=== PATIENT | female | born 1950 | race Caucasian/White ===

== ENCOUNTER 2019-03-20 00:07 | Inpatient (IN) | payer MEDICARE ==
[~2019-03-20] VITALS: Ht 167.6 cm; Wt 59.0 kg
[2019-03-20] VITALS (9 sets, daily range): BP systolic 83–104; BP diastolic 51–61
--- NOTE | 2019-03-20 00:17 | NUR ---
ARRIVAL PATIENT PRESENTS WITH COMPLAINTS OF EPIGASTRIC PAIN THAT RADIATES TO RUQ AND TO BACK SINCE 8PM LAST NIGHT. PATIENT ALSO REPORTS NAUSEA. STATES THAT SHE HAD A SIMILAR EXPERIENCE ABOUT 6 WEEKS AGO BUT THAT THIS EPISODE IS WORSE. RATES PAIN 610 AT THIS TIME. VSS. VARGAS MD NOTIFIED.
[2019-03-20] MEDS ORDERED: TORADOL IV STA (00:48)
--- NOTE | 2019-03-20 00:48 | ER.PDOC ---
General Chief Complaint: Requesting Medical Care Stated Complaint: UPPER ABD PAIN Time seen by MD: 00:25 Source: patient, family (SPOUSE) Exam Limitations: no limitations History of Present Illness Initial Comments 69 YO FEMALE PRESENTS WITH EPIGASTRIC PAIN 9/10 X 4 HRS. THE PAIN IS CONSTANT, RADIATES TO HER BACK. ASSCOCIATED NAUSEA AND VOMITING X 3. NO FEVER OR CHILLS. NO CHEST PAIN OR SHORTNESS OF BREATH. SHE HAD EATEN 3 HRS PRIOR TO THE ONSET OF THE PAIN. PATIENT HAS HAD BOWEL OBSTRUCTION IN THE PAST. SHE TOOK TYLENOL FOR THE PAIN. Timing/Duration: 1-3 hours Severity/Quality: severe, throbbing Radiation: epigastric Associated Symptoms: back pain, nausea/vomiting Exacerbated by: nothing Relieved By: nothing Allergies: Coded Allergies: morphine (Verified Allergy, Unknown, 03/20/19) Home Meds Unable to Obtain Active Prescriptions or Reported Meds Vital Signs First Vital Signs Date Time Temp Pulse Resp B/P (MAP) Pulse Ox O2 Delivery O2 Flow Rate FiO2 03/20/19 00:17 97.8 82 16 103/57 (72) 94 Room Air Last Vital Signs Date Time Temp Pulse Resp B/P (MAP) Pulse Ox O2 Delivery O2 Flow Rate FiO2 03/20/19 04:00 68 16 95/57 (70) 94 Room Air 03/20/19 00:17 97.8 Past Medical History Medical History: hypertension, other (CROHN'S DISEASE) Surgical History: colectomy LMP (females 10-50): postmenopause Family History Significant Family History: no pertinent family hx Social History Smoking: cigarettes Alcohol Use: none Drug Use: none Reviewed Nursing Reviewed: Vital Signs, Abn. Noted, Nursing Assessment Constitutional: denies chills, denies fever EENTM: see HPI Respiratory: denies cough, denies shortness of breath Cardiovascular: denies chest pain Gastrointestinal: abdominal pain, nausea, vomiting Genitourinary: see HPI Skin: see HPI Psychiatric/Neurological: see HPI Hematologic/Lymphatic: see HPI Physical Exam General Appearance: Anxious HEENT: PERRL/EOMI, Normal ENT Inspection Neck: Supple Respiratory: chest non-tender, lungs clear, normal breath sounds, no respiratory distress Cardiovascular: Normal Peripheral Pulses, Regular Rate, Rhythm, No Edema, No JV D Gastrointestinal: No Organomegaly, No Pulsatile Mass, Hyperactive bowel sounds, Soft, Tenderness (RIGHT LOWER, RIGHT UPPER, EPIGASTRIC AND LEFT UPPER QUADRANT TENDERNESS- MODERATE), Other (falk's positive) Back: Normal Inspection, No CVA Tenderness, No Vertebral Tenderness Extremities: Normal Range of Motion, Non-Tender, Normal Inspection Neurologic/Psychiatric: Alert, Normal Mood/Affect, Oriented x 3 Skin: Normal Color, Warm/Dry Results/Orders Results/Orders Orders - QUCO KAYE MD Cbc With Auto Diff (03/20/19 00:48) Comprehensive Metabolic Panel (03/20/19 00:48) Amylase (03/20/19 00:48) Lipase (03/20/19 00:48) Ct Abd/Pel With Iv Contrast (03/20/19 00:48) Urinalysis (03/20/19 00:48) Saline Lock (03/20/19 00:48) Ekg-Routine (03/20/19 00:48) Ketorolac Tromethamine (Toradol) (03/20/19 00:48) Ondansetron Hcl/Pf (Zofran 4 Mg/2 Ml Via (03/20/19 00:52) 0.9 % Sodium Chloride (Ns 1000ml) (03/20/19 00:52) Us Abdomen Limited (03/20/19 02:44) Piperacillin Sodium/Tazobactam (Zosyn 3. (03/20/19 04:24) 0.9 % Sodium Chloride (Ns 100ml) (03/20/19 04:26) Vital Signs Date Time Temp Pulse Resp B/P (MAP) Pulse Ox O2 Delivery O2 Flow Rate FiO2 03/20/19 04:00 68 16 95/57 (70) 94 Room Air 03/20/19 03:00 81 16 93/56 (68) 94 Room Air 03/20/19 02:00 79 16 91/56 (68) 94 Room Air 03/20/19 01:00 86 16 98/61 (73) 96 Room Air 03/20/19 00:17 97.8 82 16 03/20/19 00:17 97.8 82 16 94 Room Air 03/20/19 00:17 97.8 82 16 103/57 (72) 94 Room Air Administered Medications Medications (Trade) Dose Ordered Sig/Jona Route PRN Reason Start Time Stop Time Status Last Admin Dose Admin Ketorolac Tromethamine (Toradol) 15 mg STAT STAT IV 03/20/19 00:48 03/20/19 05:24 DC 03/20/19 01:03 15 MG Ondansetron HCl (Zofran 4 Mg/2 ml Vial) 4 mg STAT STAT IV 03/20/19 00:52 03/20/19 05:24 DC 03/20/19 01:03 4 MG Sodium Chloride 1,000 ml @ 0 mls/hr Q0M STAT IV 03/20/19 00:52 03/20/19 05:23 DC 03/20/19 01:03 1,000 MLS/HR Laboratory Tests Test 03/20/19 00:19 03/20/19 01:00 03/20/19 01:10 Urine Collection Type VOID Urine Color YELLOW (YELLOW) Urine Appearance CLEAR (CLEAR) Urine Bilirubin NEGATIVE MG/DL (NEGATIVE) Urine Ketones NEGATIVE (NEGATIVE) Urine Specific [place] 1.020 (1.005-1.035) Urine pH 5 (5.0-6.0) Urine Protein 15 mg/dL (NEGATIVE) H Urine Urobilinogen NORMAL (NEGATIVE) Urine Nitrate NEGATIVE (NEGATIVE) Urine Leukocyte Esterase 25 /uL TRACE (NEGATIVE) Urine Blood NEGATIVE (NEGATIVE) Urine RBC 0-2 RBC/HPF (NONE SEEN) Urine WBC 2-5 WBC/HPF (0-2) Urine Squamous Epithelial Cells MANY #/HPF (FEW) Urine Bacteria NONE SEEN (NONE SEEN) Urine Glucose NORMAL (NEGATIVE) White Blood Count 14.2 10^3/uL (4.5-11.0) H Red Blood Count 4.56 10^6/uL (4.00-5.20) Hemoglobin 14.4 g/dL (12.0-15.0) Hematocrit 41.9 % (36.0-46.0) Mean Corpuscular Volume 91.9 fL (78-100) Mean Corpuscular Hemoglobin 31.6 pg (26-34) Mean Corpuscular Hemoglobin Concent 34.4 g/dL (33-37) Red Cell Distribution Width 12.8 % (11.5-14.5) Platelet Count 316 10^3/uL (150-400) Mean Platelet Volume 9.7 fL (7.8-11.0) Neutrophils (%) (Auto) 76.1 % (41.0-85.0) Lymphocytes (%) (Auto) 16.4 % (24.0-44.0) L Monocytes (%) (Auto) 6.4 % (5.0-12.0) Neutrophils # (Auto) 10.8 10^3/uL (1.8-7.7) H Lymphocytes # (Auto) 2.3 10^3/uL (1.0-4.8) Monocytes # (Auto) 0.9 10^3/uL (0.3-0.8) H Absolute Immature Granulocyte (auto 0.04 10^3 u/L (0-2) Immature Granulocytes % 0.30 % (0.00-0.50) Eosinophils % 0.4 % (0.0-5.0) Basophils % 0.4 % (0.0-0.2) H Basophils # 0.1 10^3/uL (0.0-0.1) Eosinophil Count 0.1 10^3/uL (0.0-0.2) Sodium Level 139 mmol/L (132-145) Potassium Level 3.2 mmol/L (3.6-5.2) L Chloride Level 99.0 mmol/L (96-109) Carbon Dioxide Level 29.6 mmol/L (20.0-32) Anion Gap 13.6 Blood Urea Nitrogen 19 mg/dL (7-18) H Creatinine 1.24 mg/dL (0.59-1.40) Estimated GFR () 51.6 (>/=60) BUN/Creatinine Ratio 15.0 Glucose Level 131 mg/dL (70-110) H Calcium Level 9.2 mg/dL (8.4-10.5) Total Bilirubin 1.2 mg/dL (0.2-1.0) H Aspartate Amino Transferase (AST) 126 U/L (0-35) H Alanine Aminotransferase (ALT) 75 U/L (12-78) Alkaline Phosphatase 159 U/L (50-136) H Total Protein 7.6 g/dL (6.4-8.2) Albumin 3.7 g/dL (3.4-5.0) Globulin 3.9 Amylase Level 75 U/L (25-115) Lipase 534 U/L (114-286) H Differential Total Cells Counted 100 #CELLS Segmented Neutrophils 76 % (31-76) Lymphocytes 10 % (25-36) L Monocytes 13 % (3-9) H Absolute Eosinophils (Manual) 1 % (1-4) Atypical Lymphocytes % Platelet Estimate ADEQUATE Platelet Morphology NORMAL Blood Morphology Comment NORMAL MORPHOLOGY Progress Progress PATIENT STATES IMPROVEMENT IN PAIN AND NAUSEA. LABS SHOW ELEVATED WBC, ALK PHOSPHATE, BILIRUBIN, LIVER ENZYMES AND LIPASE. EKG IS UNREMARKABLE. CT SCAN AND GALL BLADDER SONO SHOW STONES/SLUDGE IN GALLBLADDER AND WALL THICKNESS. THIS IS CONSISTENT WITH ACUTE CHOLECYSTITIS. WILL CONSULT WITH SURGEON. THE PATIENT IS STABLE. EKG/XRAY/CT/US EKG: NSR (SINUS ARRYTHMIA WITH 1ST DEGREE AV BLOCK) CT Comments: . Dense gallbladder nodule in the nondependent portion of the gallbladder, Ultrasound: gall bladder stones, thick gall bladder wall Utrasound Comments: Gallbladder contains stone and sludge. The gallbladder wall is thickened. Consult/PCP Time Consult/PCP Called: 04:20 Consult/PCP: DR. LITTLEJOHN Reason/Comments: ADMIT TO HOSPITALIST, I WILL CONSULT. START ZOSYN #2 Time Consult/PCP Called: 04:25 Consult/PCP: DR. CARLSON Reason/Comments: ACCEPTED ADMIT Course Vitals & review Data Vital Sign - Last 24 Hours 03/20/19 03/20/19 03/20/19 03/20/19 00:17 00:17 00:17 01:00 Temp 97.8 97.8 97.8 Pulse 82 82 82 86 Resp 16 16 16 16 B/P (MAP) 103/57 (72) 98/61 (73) Pulse Ox 94 94 96 O2 Delivery Room Air Room Air Room Air 03/20/19 03/20/19 03/20/19 02:00 03:00 04:00 Pulse 79 81 68 Resp 16 16 16 B/P (MAP) 91/56 (68) 93/56 (68) 95/57 (70) Pulse Ox 94 94 94 O2 Delivery Room Air Room Air Room Air Laboratory Tests Test 03/20/19 00:19 03/20/19 01:00 03/20/19 01:10 Urine Collection Type VOID Urine Color YELLOW Urine Appearance CLEAR Urine Bilirubin NEGATIVE MG/DL Urine Ketones NEGATIVE Urine Specific [place] 1.020 Urine pH 5 Urine Protein 15 mg/dL Urine Urobilinogen NORMAL Urine Nitrate NEGATIVE Urine Leukocyte Esterase 25 /uL TRACE Urine Blood NEGATIVE Urine RBC 0-2 RBC/HPF Urine WBC 2-5 WBC/HPF Urine Squamous Epithelial Cells MANY #/HPF Urine Bacteria NONE SEEN Urine Glucose NORMAL White Blood Count 14.2 10^3/uL Red Blood Count 4.56 10^6/uL Hemoglobin 14.4 g/dL Hematocrit 41.9 % Mean Corpuscular Volume 91.9 fL Mean Corpuscular Hemoglobin 31.6 pg Mean Corpuscular Hemoglobin Concent 34.4 g/dL Red Cell Distribution Width 12.8 % Platelet Count 316 10^3/uL Mean Platelet Volume 9.7 fL Neutrophils (%) (Auto) 76.1 % Lymphocytes (%) (Auto) 16.4 % Monocytes (%) (Auto) 6.4 % Neutrophils # (Auto) 10.8 10^3/uL Lymphocytes # (Auto) 2.3 10^3/uL Monocytes # (Auto) 0.9 10^3/uL Absolute Immature Granulocyte (auto 0.04 10^3 u/L Immature Granulocytes % 0.30 % Eosinophils % 0.4 % Basophils % 0.4 % Basophils # 0.1 10^3/uL Eosinophil Count 0.1 10^3/uL Sodium Level 139 mmol/L Potassium Level 3.2 mmol/L Chloride Level 99.0 mmol/L Carbon Dioxide Level 29.6 mmol/L Anion Gap 13.6 Blood Urea Nitrogen 19 mg/dL Creatinine 1.24 mg/dL Estimated GFR () 51.6 BUN/Creatinine Ratio 15.0 Glucose Level 131 mg/dL Calcium Level 9.2 mg/dL Total Bilirubin 1.2 mg/dL Aspartate Amino Transf (AST/SGOT) 126 U/L Alanine Aminotransferase (ALT/SGPT) 75 U/L Alkaline Phosphatase 159 U/L Total Protein 7.6 g/dL Albumin 3.7 g/dL Globulin 3.9 Amylase Level 75 U/L Lipase 534 U/L Differential Total Cells Counted 100 #CELLS Segmented Neutrophils 76 % Lymphocytes 10 % Monocytes 13 % Absolute Eosinophils (Manual) 1 % Atypical Lymphocytes % Platelet Estimate ADEQUATE Platelet Morphology NORMAL Blood Morphology Comment NORMAL MORPHOLOGY Current Medications Medications (Trade) Dose Ordered Sig/Jona PRN Reason Start Time Stop Time Status Last Admin Piperacillin Sod/ Tazobactam Sod 3.375 gm/Sodium Chloride 100 ml @ 100 mls/hr Q6 STAT 03/20/19 04:24 03/20/19 05:23 UNV Vital Sign - Last 24 Hours 03/20/19 03/20/19 03/20/19 00:17 00:17 00:17 Temp 97.8 97.8 97.8 Pulse 82 82 82 Resp 16 16 16 B/P (MAP) 103/57 (72) Pulse Ox 94 94 O2 Delivery Room Air Room Air Laboratory Tests Test 03/20/19 00:19 03/20/19 01:00 03/20/19 01:10 Urine Collection Type VOID Urine Color YELLOW Urine Appearance CLEAR Urine Bilirubin NEGATIVE MG/DL Urine Ketones NEGATIVE Urine Specific [place] 1.020 Urine pH 5 Urine Protein 15 mg/dL Urine Urobilinogen NORMAL Urine Nitrate NEGATIVE Urine Leukocyte Esterase 25 /uL TRACE Urine Blood NEGATIVE Urine RBC 0-2 RBC/HPF Urine WBC 2-5 WBC/HPF Urine Squamous Epithelial Cells MANY #/HPF Urine Bacteria NONE SEEN Urine Glucose NORMAL White Blood Count 14.2 10^3/uL Red Blood Count 4.56 10^6/uL Hemoglobin 14.4 g/dL Hematocrit 41.9 % Mean Corpuscular Volume 91.9 fL Mean Corpuscular Hemoglobin 31.6 pg Mean Corpuscular Hemoglobin Concent 34.4 g/dL Red Cell Distribution Width 12.8 % Platelet Count 316 10^3/uL Mean Platelet Volume 9.7 fL Neutrophils (%) (Auto) 76.1 % Lymphocytes (%) (Auto) 16.4 % Monocytes (%) (Auto) 6.4 % Neutrophils # (Auto) 10.8 10^3/uL Lymphocytes # (Auto) 2.3 10^3/uL Monocytes # (Auto) 0.9 10^3/uL Absolute Immature Granulocyte (auto 0.04 10^3 u/L Immature Granulocytes % 0.30 % Eosinophils % 0.4 % Basophils % 0.4 % Basophils # 0.1 10^3/uL Eosinophil Count 0.1 10^3/uL Sodium Level 139 mmol/L Potassium Level 3.2 mmol/L Chloride Level 99.0 mmol/L Carbon Dioxide Level 29.6 mmol/L Anion Gap 13.6 Blood Urea Nitrogen 19 mg/dL Creatinine 1.24 mg/dL Estimated GFR () 51.6 BUN/Creatinine Ratio 15.0 Glucose Level 131 mg/dL Calcium Level 9.2 mg/dL Total Bilirubin 1.2 mg/dL Aspartate Amino Transf (AST/SGOT) 126 U/L Alanine Aminotransferase (ALT/SGPT) 75 U/L Alkaline Phosphatase 159 U/L Total Protein 7.6 g/dL Albumin 3.7 g/dL Globulin 3.9 Amylase Level 75 U/L Lipase 534 U/L Differential Total Cells Counted 100 #CELLS Segmented Neutrophils 76 % Lymphocytes 10 % Monocytes 13 % Absolute Eosinophils (Manual) 1 % Atypical Lymphocytes % Platelet Estimate ADEQUATE Platelet Morphology NORMAL Blood Morphology Comment NORMAL MORPHOLOGY Current Medications Medications (Trade) Dose Ordered Sig/Jona PRN Reason Start Time Stop Time Status Last Admin Ketorolac Tromethamine (Toradol) 15 mg STAT STAT 03/20/19 00:48 03/20/19 00:49 UNV 03/20/19 01:03 Ondansetron HCl (Zofran 4 Mg/2 ml Vial) 4 mg STAT STAT 03/20/19 00:52 03/20/19 00:53 UNV 03/20/19 01:03 Piperacillin Sod/ Tazobactam Sod 3.375 gm/Sodium Chloride 100 ml @ 100 mls/hr Q6 STAT 03/20/19 04:24 03/20/19 05:23 UNV Sodium Chloride 1,000 ml @ 0 mls/hr Q0M STAT 03/20/19 00:52 03/20/19 00:53 UNV 03/20/19 01:03 Departure Time of Disposition: 04:26 Disposition: 09 ADMITTED INPATIENT Impression: Primary Impression: Acute cholecystitis due to biliary calculus Additional Impression: Acute pancreatitis Condition: Stable Referrals: ANGELICA RECINOS MD (PCP) PRIMARY CARE PROVIDER Scripts Unable to Obtain Active Prescriptions or Reported Meds Duration or Time Spent with Pa: 60 min Problem Qualifiers QUOC KAYE MD Mar 20, 2019 00:48
[2019-03-20] MEDS ORDERED: ZOFRAN 4 MG/2 ML VIAL IV STA (00:52)
[2019-03-20] MEDS ORDERED: NS 1000ML 1,000 ML STA (00:52)
[2019-03-20 01:04] LABS: BASOPHIL # 0.1 10^3/uL (0.0-0.1); BASOPHIL % 0.4 % (0.0-0.2); EOSINOPHIL # 0.1 10^3/uL (0.0-0.2); EOSINOPHIL % 0.4 % (0.0-5.0); LYMPHOCYTES # 2.3 10^3/uL (1.0-4.8); LYMPHOCYTES % 16.4 % (24.0-44.0); MEAN CORP HGB 31.6 pg (26-34); MONOCYTES # 0.9 10^3/uL (0.3-0.8); MONOCYTES % 6.4 % (5.0-12.0); NEUTROPHIL # 10.8 10^3/uL (1.8-7.7); NEUTROPHILS % 76.1 % (41.0-85.0); RED CELL DISTRIBUTION WIDTH 12.8 % (11.5-14.5)
--- NOTE | 2019-03-20 01:12 | PCM.EKG ---
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
[2019-03-20 01:19] LABS: APPEARANCE,URINE CLEAR (CLEAR); BILIRUBIN,URINE NEGATIVE (NEGATIVE); UA COLOR YELLOW (YELLOW); UROBILINOGEN,URINE NORMAL (NEGATIVE)
[2019-03-20 01:20] LABS: CALCIUM 9.2 mg/dL (8.4-10.5); CARBON DIOXIDE 29.6 mmol/L (20.0-32)
--- NOTE | 2019-03-20 01:30 | NUR ---
RADIOLOGY PATIENT IS BEING TRANSPORTED TO RADIOLOGY VIA WHEELCHAIR. NO SIGNS OF DISTRESS NOTED.
--- NOTE | 2019-03-20 01:42 | NUR ---
RADIOLOGY PATIENT BACK FROM RADIOLOGY. NO SIGNS OF DISTRESS NOTED.
--- NOTE | 2019-03-20 01:59 | DIREP ---
PROCEDURE:CT ABDOMEN/PELVIS W/ CONTRAST COMPARISON:None. INDICATIONS:ABDOMINAL PAIN TECHNIQUE:Axial images were created through the abdomen and pelvis with non-ionic intravenous contrast material. No oral contrast was administered. Sagittal and coronal reconstructions were performed from source images. FINDINGS: LUNG BASES:Normal. No visible pulmonary or pleural disease. LIVER:Normal. No significant liver lesions are identified. BILIARY:1 cm dense focus in the anterior wall gallbladder. Punctate gallbladder calcification. PANCREAS:Normal. No lesion, fluid collection, ductal dilatation, or atrophy. SPLEEN:Normal. No enlargement or focal lesion. ADRENALS:Normal. No mass or enlargement. URINARY TRACT:Normal. No focal lesions or hydronephrosis. AORTA/VASCULAR: There is atherosclerotic aortic calcium. RETROPERITONEUM:Normal. No mass or adenopathy. BOWEL/MESENTERY:Normal. There is no intestinal obstruction, free fluid, free air or mesenteric inflammatory changes. ABDOMINAL WALL:Normal. No mass or hernia. PELVIC ORGANS:Calcified uterine fibroids BONES:Normal for age. No bony lesion or acute fracture. OTHER:Negative. CONCLUSION: 1. Dense gallbladder nodule in the nondependent portion of the gallbladder, adhering to the gallbladder wall. Findings suggest a polyp. There is also a tiny gallstone. 2. Calcified uterine fibroid Dictated by: Evert Alvarez Jr. on 03/20/2019 at 01:51 AM
[2019-03-20 03:14] LABS: EOSINOPHIL 1 % (1-4); LYMPHOCYTE 10 % (25-36); MONOCYTE 13 % (3-9); SEGMENTED NEUTROPHILS 76 % (31-76)
--- NOTE | 2019-03-20 03:19 | DIREP ---
PROCEDURE:US ABDOMEN LIMITED (SINGLE ORGAN - QUAD) COMPARISON:[facility], CT, CT ABD/PELVIS W/ CONTRAST, 03/20/2019, 01:38 AM. INDICATIONS:RUQ PAIN TECHNIQUE:High resolution sonographic examination was performed of the abdomen. FINDINGS: PANCREAS:Partially obscured by overlying bowel gas LIVER:Normal size and echogenicity. No significant masses. Normal, hepatopetal, flow in the portal vein. BILIARY:Contains stones and sludge. The wall is thickened to 7 mm. There are echogenic foci within the wall with comet tail artifact suggesting adenomyosis. RIGHT KIDNEY:Negative. OTHER:Negative. CONCLUSION: 1. Gallbladder contains stone and sludge. The gallbladder wall is thickened. There are comet tail artifacts in the gallbladder wall in keeping with adenomyosis. Dictated by: Evert Alvarez Jr. on 03/20/2019 at 03:14 AM
[2019-03-20] MEDS ORDERED: ZOSYN 3.375 GM 3.375 GM in NS 100ML 100 ML IV STA (04:24)
[2019-03-20] MEDS ORDERED: NS 100ML 100 ML IV ONE (04:26)
--- NOTE | 2019-03-20 04:43 | NUR ---
ZOSYN 3.375MG STARTED AT 0438 BY Leesa CRANERN
--- NOTE | 2019-03-20 05:13 | NUR ---
REPORT REPORT CALLED TO NORRIS RENDON ON MED/SURG. ALL QUESTIONS ANSWERED. PATIENT IS BEING TRANSFERRED TO MED/SURG VIA WHEELCHAIR BY NORRIS FLORES.
--- NOTE | 2019-03-20 05:15 | NUR ---
RECEIVED PT TO UNIT VIA W/C ACCOMPANIED BY SOFT WORK WRAPPER EXAMINER. PT DENIES PAIN AT THIS TIME, SHE TRANSFERS SELF TO BED WITHOUT DIFFICULTY. ORIENT TO ROOM, CALL LIGHT IN REACH
[2019-03-20] MEDS: NS 1000ML/KCL 20MEQ 1,000 ML IV SCH ×2 (05:40→16:29)
[2019-03-20 08:19] LABS: BASOPHIL # 0.1 10^3/uL (0.0-0.1); BASOPHIL % 0.5 % (0.0-0.2); EOSINOPHIL # 0.1 10^3/uL (0.0-0.2); EOSINOPHIL % 0.8 % (0.0-5.0); LYMPHOCYTES # 3.2 10^3/uL (1.0-4.8); LYMPHOCYTES % 29.9 % (24.0-44.0); MONOCYTES % 9.4 % (5.0-12.0); NEUTROPHIL # 6.3 10^3/uL (1.8-7.7); NEUTROPHILS % 59.2 % (41.0-85.0); RED CELL DISTRIBUTION WIDTH 12.7 % (11.5-14.5)
[2019-03-20] MEDS ORDERED: APRESOLINE IV PRN (08:30)
[2019-03-20] MEDS ORDERED: ZOFRAN 4 MG/2 ML VIAL IV PRN (08:30)
--- NOTE | 2019-03-20 08:30 | PCM.HP ---
History of Present Illness Reason for Visit: Abdominal Pain, N/D History of Present Illness Patient is a 69 F PMH of Crohn's Disease with hx of Small Bowel Resection and HTN who presents with abdominal pain, nausea, diarrhea x 1 day. Symptoms started at 8PM. She had similar symptoms 6 weeks ago but not as severe. The pain was so intense that patient came to ER. She was found to have acute on Chronic Cholecystitis with Gallstone Pancreatitis. Surgery was consulted and patient admitted to hospital. She was started on IV abx, made NPO, and started on IVF. Pain is controlled currently. I discussed case with Surgery. I reviewed patient's labs and reviewed medical/surgical hx. I discussed plan of care with patient and she verbalized understanding/agreement. EKG negative for acute ischemic changes. Mild prolongation of QT, possibly 2/2 hypokalemia. Past Medical History Cardiac: HTN GI: Inflam Bowel Disease (Crohn's (on Humira outpatient)) Past Surgical History: Cataract Removal, Other (L shoulder, Small Bowel Resection (2/2 SBO, 9 inches removed)) Past Social History Smoke: 1 pack per day Alcohol: none Drugs: None Lives: with Family Travel Hx EBOLA RISK:Travel to/contact w: No Is pt experiencing any Ebola s: No Review of Systems Constitutional: No: Fever, Chills Eyes: No: Conjunctivae inflammation, Eyelid inflammation ENT: No: Nose discharge, Nose congestion Respiratory: No: Cough, Shortness of breath, SOB with excertion, Wheezing Cardiovascular: No: Chest Pain, Palpitations, Paroxysmal Noc. Dyspnea Gastrointestinal: Nausea, Vomiting, Abdominal Pain, Diarrhea Genitourinary: No Incontinence, No Retention Musculoskeletal: No: neck pain, back pain Skin: No: Rash, Lesions, Jaundice, Bruising Neurological: No: Weakness, Numbness, Incoordination, Change in speech, Confusion, Seizures Allergies: Coded Allergies: morphine (Verified Allergy, Unknown, 03/20/19) Unable to Obtain Active Prescriptions or Reported Meds VTE VTE Risk Total Score: 2 VTE Risk Score VTE Risk: Score 0-1 = Low Risk (Aggressive mobilization; early ambulation; no VTE prophylaxis required) Score 2: Moderate Risk (Intermittent/Pneumatic Compression Device OR Lovenox/Heparin/Coumadin) Score 3-4: High Risk (Intermittent/Pneumatic Compression Device AND Lovenox/Heparin/Coumadin) Score > or =5: Highest Risk (Intermittent/Pneumatic Compression Device AND Lovenox/Heparin/Coumadin) VTE VTE Present on Admission: No Currently receiving anticoagul: No VTE Risk Total Score: 2 Exam Vital Signs Vital Signs Date Time Temp Pulse Resp B/P (MAP) Pulse Ox O2 Delivery O2 Flow Rate FiO2 03/20/19 05:50 97.8 72 17 95/61 (72) 93 Room Air General Appearance: Alert, Oriented X3, Cooperative, No acute distress HEENT: Atraumatic, PERRLA, EOMI, Mucous membr. moist/pink Respiratory: Clear to auscultation, Normal air movement Cardiovascular: Regular rate, Normal S1, Normal S2, No murmurs Abdominal: Normal bowel sounds, Soft, No tenderness Extremities: No edema, Normal pulses, No tenderness/swelling Skin: No rash, No breakdown, No lesions Neuro: Normal speech, Strength at 5/5 X4 ext, Normal tone, Sensation intact, Cranial nerves 3-12 NL Psych/Mental Status: Mental status NL, Mood NL Assessment/Plan Assessment/Plan Assessment/Plan Patient is a 69 F PMH of Crohn's Disease with hx of Small Bowel Resection and HTN who presents with abdominal pain, nausea, diarrhea x 1 day. Plan 1. Acute on Chronic Cholecystitis/Gallstone Pancreatitis: repeat labs this AM. Imaging reviewed. Surgery consulted from ER. NPO currently. Cont IVF. Cont pain control, PPI IV daily. Await further recs per surgery. Cont IV abx. 2. HTN: BP low normal range currently. Hold home meds. Hydralazine PRN. 3. Crohn's Disease: Patient on Humira outpatient. Hx of SBO with Small Bowel Resection. 4. PPx: PPI, Lovenox 5. Hypokalemia: replace in IVF LEE CARLSON MD Mar 20, 2019 08:30
[2019-03-20 08:33] LABS: CALCIUM 8.1 mg/dL (8.4-10.5); CARBON DIOXIDE 26.8 mmol/L (20.0-32)
[2019-03-20] MEDS ORDERED: HYDR25TA9 PO (08:34)
[2019-03-20] MEDS ORDERED: METO25TA4 PO (08:34)
[2019-03-20] MEDS ORDERED: AMLO5TAB10 PO (08:34)
[2019-03-20] MEDS: PROTONIX IV IV SCH (08:34)
[2019-03-20] MEDS ORDERED: SPIR25TA PO (08:34)
[2019-03-20] MEDS ORDERED: DIPH1TAB PO (08:34)
[2019-03-20] MEDS: LOVENOX SQ SCH (08:35)
[2019-03-20] MEDS ORDERED: TORADOL ONE (08:57)
[2019-03-20] MEDS ORDERED: PROTONIX PO SCH (09:00)
[2019-03-20] MEDS: TORADOL IV PRN ×2 (09:31→17:18)
--- NOTE | 2019-03-20 11:45 | NUR ---
DISCHARGE PLAN CM AT BEDSIDE TO VISIT WITH PATIENT REGARDING D/C PLAN AND GOAL. PATIENT LIVES AT HOME WITH HER SPOUSE. SHE IS INDEPENDENT OF ADLS. SHE IS FINANCIALLY ABLE TO PAY FOR HER MEDICATIONS. SHE DENIES THE USE OF DME OR OXYGEN IN THE HOME. HER PCP IS DR RECIONS AND KARENA LEWIS HER LAST F/U THERE WAS 2 MONTHS AGO. CM OFFERED TO SCHEDULE A F/U AND PT REFUSED STATING SHE IS GOING TO F/U WITH DR JO HER BRACER IN [place]. CM EDUCATED PT ON OP SERVICES AND HH. PATIENT STATES SHE IS INDEPENDENT AND SIGNED REFUSAL AT THIS TIME. CM ALSO ASSISTED PT TO FILL OUT RELEASE OF MEDICAL RECORD FOR HIM. DISCHARGE GOAL IS FOR PT TO D/C HOME WITH SPOUSE AND CONTINUE ROUTINE CARE THERE. NO FURTHER NEEDS NOTED AT THIS TIME.
--- NOTE | 2019-03-20 11:45 | NUR ---
DISCHARGE PLAN CM AT BEDSIDE TO VISIT WITH PATIENT REGARDING D/C PLAN AND GOAL. PATIENT LIVES AT HOME WITH HER SPOUSE. SHE IS INDEPENDENT OF ADLS. SHE IS FINANCIALLY ABLE TO PAY FOR HER MEDICATIONS. SHE DENIES THE USE OF DME OR OXYGEN IN THE HOME. HIS PCP IS DR RECINOS AND HIS LAST F/U THERE WAS 6 MONTHS AGO FOR A PHYSICAL. CM EDUCATED PT ON OP SERVICES AND HH. PATIENT STATES HE IS INDEPENDENT AND VERBALLY REFUSES NEEDS AT THIS TIME. DISCHARGE GOAL IS FOR PT TO D/C HOME WITH SPOUSE AND CONTINUE ROUTINE CARE THERE. NO FURTHER NEEDS NOTED AT THIS TIME. Addendum: 03/20/19 at 1211 by Romi Estrada RN - Mis Director RN DISREGARD NOTE INCORRECT PT.
[2019-03-20] MEDS: ZOSYN 3.375 GM 3.375 GM in NS 100ML 100 ML IV SCH ×2 (12:06→17:17)
[2019-03-20] MEDS ORDERED: BENADRYL PO PRN (21:30)
[2019-03-21] MEDS: ZOSYN 3.375 GM 3.375 GM in NS 100ML 100 ML IV SCH ×2 (01:41→06:32)
[2019-03-21] MEDS: NS 1000ML/KCL 20MEQ 1,000 ML IV SCH (04:36)
[2019-03-21 05:07] VITALS: BP 90/53
[2019-03-21 05:25] LABS: BASOPHIL % 0.2 % (0.0-0.2); EOSINOPHIL # 0.1 10^3/uL (0.0-0.2); EOSINOPHIL % 1.2 % (0.0-5.0); LYMPHOCYTES # 2.6 10^3/uL (1.0-4.8); LYMPHOCYTES % 30.8 % (24.0-44.0); MEAN CORP HGB 31.6 pg (26-34); MONOCYTES # 0.9 10^3/uL (0.3-0.8); MONOCYTES % 10.6 % (5.0-12.0); NEUTROPHIL # 4.8 10^3/uL (1.8-7.7); NEUTROPHILS % 57.1 % (41.0-85.0); RED CELL DISTRIBUTION WIDTH 13.2 % (11.5-14.5)
[2019-03-21 05:40] LABS: CALCIUM 7.7 mg/dL (8.4-10.5); CARBON DIOXIDE 26.4 mmol/L (20.0-32)
[2019-03-21 07:14] VITALS: BP 105/62
--- NOTE | 2019-03-21 07:41 | DIREP ---
PROCEDURE:CHEST 1 VIEW COMPARISON:[facility], CR, XRAY CHEST 2 VWS, 07/16/2017, 11:42 AM. INDICATIONS:Short of Breath FINDINGS: LUNGS/PLEURA:No suspicious airspace consolidation, pleural effusion or pneumothorax is identified. VASCULATURE:Normal. Unremarkable pulmonary vasculature. CARDIAC:Normal. No cardiac silhouette abnormality or cardiomegaly. MEDIASTINUM:Normal. No visible mass or adenopathy. BONES:No acute abnormality. Degenerative changes of the spine. OTHER:Negative. CONCLUSION: 1. Stable chest without acute cardiopulmonary abnormality. Dictated by: Kevin Thao M.D. On 03/21/2019 at 07:37 AM
[2019-03-21] MEDS: PROTONIX IV IV SCH (08:23)
[2019-03-21] MEDS: LOVENOX SQ SCH (08:23)
[2019-03-21] MEDS ORDERED: AMOX1TAB63 PO (10:39)
[2019-03-21] MEDS ORDERED: DEXA4TAB PO (10:39)
--- NOTE | 2019-03-21 10:48 | PRM.DC ---
Post-OP Discharge Summary Date of Arrival on Unit: Mar 20, 2019 Reason for Visit: Abdominal Pain, N/D History of Present Illness Physician Notes: See dictated d/c summary. Objective Review IO, Exams,& Results Problems Acute/Active Problems: (1) Acute cholecystitis due to biliary calculus (2) Acute pancreatitis Vital Signs Date Time Temp Pulse Resp B/P (MAP) Pulse Ox O2 Delivery O2 Flow Rate FiO2 03/21/19 10:11 Room Air 03/21/19 07:14 97.9 77 18 105/62 (76) 92 Intake and Output 03/21/19 06:59 Intake Total 950 ml Output Total 800 ml Balance 150 ml Intake Oral 950 ml Output Urine Total 800 ml Laboratory Tests Test 03/20/19 00:19 03/20/19 01:00 03/20/19 01:10 03/20/19 08:14 Urine Collection Type VOID Urine Color YELLOW Urine Appearance CLEAR Urine Bilirubin NEGATIVE MG/DL Urine Ketones NEGATIVE Urine Specific [place] 1.020 Urine pH 5 Urine Protein 15 mg/dL Urine Urobilinogen NORMAL Urine Nitrate NEGATIVE Urine Leukocyte Esterase 25 /uL TRACE Urine Blood NEGATIVE Urine RBC 0-2 RBC/HPF Urine WBC 2-5 WBC/HPF Urine Squamous Epithelial Cells MANY #/HPF Urine Bacteria NONE SEEN Urine Glucose NORMAL White Blood Count 14.2 10^3/uL 10.7 10^3/uL Red Blood Count 4.56 10^6/uL 4.28 10^6/uL Hemoglobin 14.4 g/dL 13.7 g/dL Hematocrit 41.9 % 39.5 % Mean Corpuscular Volume 91.9 fL 92.3 fL Mean Corpuscular Hemoglobin 31.6 pg 32.0 pg Mean Corpuscular Hemoglobin Concent 34.4 g/dL 34.7 g/dL Red Cell Distribution Width 12.8 % 12.7 % Platelet Count 316 10^3/uL 304 10^3/uL Mean Platelet Volume 9.7 fL 9.7 fL Neutrophils (%) (Auto) 76.1 % 59.2 % Lymphocytes (%) (Auto) 16.4 % 29.9 % Monocytes (%) (Auto) 6.4 % 9.4 % Neutrophils # (Auto) 10.8 10^3/uL 6.3 10^3/uL Lymphocytes # (Auto) 2.3 10^3/uL 3.2 10^3/uL Monocytes # (Auto) 0.9 10^3/uL 1.0 10^3/uL Absolute Immature Granulocyte (auto 0.04 10^3 u/L 0.02 10^3 u/L Immature Granulocytes % 0.30 % 0.20 % Eosinophils % 0.4 % 0.8 % Basophils % 0.4 % 0.5 % Basophils # 0.1 10^3/uL 0.1 10^3/uL Eosinophil Count 0.1 10^3/uL 0.1 10^3/uL Sodium Level 139 mmol/L 140 mmol/L Potassium Level 3.2 mmol/L 3.4 mmol/L Chloride Level 99.0 mmol/L 103.0 mmol/L Carbon Dioxide Level 29.6 mmol/L 26.8 mmol/L Anion Gap 13.6 13.6 Blood Urea Nitrogen 19 mg/dL 15 mg/dL Creatinine 1.24 mg/dL 1.12 mg/dL Estimated GFR () 51.6 58.0 BUN/Creatinine Ratio 15.0 13.0 Glucose Level 131 mg/dL 101 mg/dL Calcium Level 9.2 mg/dL 8.1 mg/dL Total Bilirubin 1.2 mg/dL Aspartate Amino Transf (AST/SGOT) 126 U/L Alanine Aminotransferase (ALT/SGPT) 75 U/L Alkaline Phosphatase 159 U/L Total Protein 7.6 g/dL Albumin 3.7 g/dL Globulin 3.9 Amylase Level 75 U/L Lipase 534 U/L Differential Total Cells Counted 100 #CELLS Segmented Neutrophils 76 % Lymphocytes 10 % Monocytes 13 % Absolute Eosinophils (Manual) 1 % Atypical Lymphocytes % Platelet Estimate ADEQUATE Platelet Morphology NORMAL Blood Morphology Comment NORMAL MORPHOLOGY Test 03/20/19 08:19 03/20/19 08:45 03/21/19 05:05 Lipase 352 U/L 125 U/L Total Bilirubin 1.0 mg/dL 0.8 mg/dL Direct Bilirubin 0.2 mg/dL Indirect Bilirubin 0.8 mg/dL Aspartate Amino Transf (AST/SGOT) 143 U/L 45 U/L Alanine Aminotransferase (ALT/SGPT) 129 U/L 74 U/L Alkaline Phosphatase 161 U/L 129 U/L Total Protein 6.7 g/dL 5.6 g/dL Albumin 3.3 g/dL 2.5 g/dL White Blood Count 8.4 10^3/uL Red Blood Count 3.76 10^6/uL Hemoglobin 11.9 g/dL Hematocrit 36.6 % Mean Corpuscular Volume 97.3 fL Mean Corpuscular Hemoglobin 31.6 pg Mean Corpuscular Hemoglobin Concent 32.5 g/dL Red Cell Distribution Width 13.2 % Platelet Count 249 10^3/uL Mean Platelet Volume 9.9 fL Neutrophils (%) (Auto) 57.1 % Lymphocytes (%) (Auto) 30.8 % Monocytes (%) (Auto) 10.6 % Neutrophils # (Auto) 4.8 10^3/uL Lymphocytes # (Auto) 2.6 10^3/uL Monocytes # (Auto) 0.9 10^3/uL Absolute Immature Granulocyte (auto 0.01 10^3 u/L Immature Granulocytes % 0.10 % Eosinophils % 1.2 % Basophils % 0.2 % Basophils # 0.0 10^3/uL Eosinophil Count 0.1 10^3/uL Sodium Level 148 mmol/L Potassium Level 3.8 mmol/L Chloride Level 113.0 mmol/L Carbon Dioxide Level 26.4 mmol/L Anion Gap 12.4 Blood Urea Nitrogen 12 mg/dL Creatinine 1.21 mg/dL Estimated GFR () 53.1 BUN/Creatinine Ratio 9.0 Glucose Level 82 mg/dL Calcium Level 7.7 mg/dL Globulin 3.1 Current Medications Medications (Trade) Dose Ordered Sig/Jona PRN Reason Start Time Stop Time Status Last Admin Acetaminophen (Tylenol) 650 mg HS 03/21/19 21:00 04/20/19 20:59 03/20/19 21:16 Diphenhydramine HCl (Benadryl) 25 mg HS PRN ITCHING 03/20/19 21:30 04/19/19 21:29 03/20/19 21:17 Enoxaparin Sodium (Lovenox) 40 mg Q24HRS 03/20/19 08:30 04/19/19 08:29 03/21/19 08:23 Hydralazine HCl (Apresoline) 10 mg Q4HR PRN HYPERTENSION 03/20/19 08:30 04/19/19 08:29 Ketorolac Tromethamine (Toradol) 30 mg Q6H PRN PAIN 4 - 6 03/20/19 09:00 04/19/19 08:59 03/20/19 17:18 Ondansetron HCl (Zofran 4 Mg/2 ml Vial) 4 mg Q4H PRN NAUSEA / VOMITING 03/20/19 08:30 04/19/19 08:29 Pantoprazole Sodium (Protonix Iv) 40 mg DAILY 03/20/19 09:00 04/19/19 08:59 03/21/19 08:23 Piperacillin Sod/ Tazobactam Sod 3.375 gm/Sodium Chloride 100 ml @ 100 mls/hr Q6 03/20/19 12:00 04/19/19 11:59 03/21/19 06:32 Potassium Chloride/Sodium Chloride 1,000 ml @ 100 mls/hr Q10H 03/20/19 04:30 04/19/19 04:29 03/21/19 04:36 Orders - ZAKIYA JIM MD Discharge (03/21/19 10:31) Heart: Regular rate, Normal S1, Normal S2, No murmurs Abdomen: Normal bowel sounds, Soft, No tenderness Lungs: Clear to auscultation, Normal air movement Course (Sepsis Review) Date of Reassessment: Mar 21, 2019 Time of Reassessment: 920 Blood Pressure Systolic: 105 Blood Pressure Diastolic: 62 Diagnosis Problems/Diagnosis: (1) Pancreatitis (2) COPD (chronic obstructive pulmonary disease) Departure Discharge Date: Mar 21, 2019 Discharge Time: 10:47 Discharge Disposition: Home ZAKIYA JIM MD Mar 21, 2019 10:48
[2019-03-21 12:33] VITALS: BP 105/62
--- NOTE | 2019-03-21 12:36 | NUR ---
DISCHARGE DC'D IV. CATHETER INTACT. NO SIGNS OR SYMPTOMS OF INFECTION NOTED AT THIS TIME. EDUCATION SESSION WITH PATIENT PRIOR TO DISCHARGE IN THE FORUM OF VERBAL AND WRITTEN MATERIAL. EDUCATION SESSION INCLUDED NEW PRESCRIPTIONS, FOLLOW UP DR APPOINTMENT, ACTIVITY LEVEL, SMOKING CESSATION, SIGNS AND SYMPTOMS OF WHEN TO SEEK IMMEDIATE MEDICAL CARE. WELL OTHER DISCHARGE INFORMATION. PATIENT VERBALIZED UNDERSTANDING. NO QUESTIONS PRESENT AT THIS TIME. PATIENT LEFT MED SURG UNIT VIA W/C NO SIGNS OR SYMPTOMS OF DISTRESS NOTED. PATIENT LEFT VIA PRIVATE AUTO WITH FAMILY MEMBER. RELINQUISHED CARE AT THIS TIME.
--- NOTE | 2019-03-21 15:02 | CNH ---
DATE OF CONSULTATION: CHIEF COMPLAINT: Cholecystitis. HISTORY OF PRESENT ILLNESS: This is a 69-year-old female who has apparently a history of Crohn's disease. Yesterday evening, she reports she had beans and ham with her mother at another facility. Later in the evening, she developed severe epigastric pain that was cramping in nature with posterior radiation followed by multiple episodes of nausea and vomiting and dry heaving. Apparently, she did have some loose stools associated. She presented to the ER at [facility]. Workup including CT and ultrasound as well as laboratory studies that showed elevated white count and elevated lipase. She was admitted to the Med/Surg floor to the service of hospitalist. She is known to have some immune impairment as she is on long-term Humira treatment. PAST MEDICAL HISTORY: Includes hypertension and Crohn's disease. PAST SURGICAL HISTORY: Includes exploratory laparotomy with small bowel resection and previous cataract surgery. ALLERGIES: Include MORPHINE, though she reports to me this is more of an atypical reaction than actual allergy. SOCIAL HISTORY: Positive for smoked tobacco, negative for alcohol or illicit drug use. FAMILY HISTORY: the patient's mother is living, age 91, is healthy. Father is at age 47 from an accidental . REVIEW OF SYSTEMS: ENDOCRINE: She has no reported diabetes or thyroid disease. CARDIOVASCULAR: No chest pain or trouble breathing. PULMONARY: No dyspnea or cough. ABDOMEN: As per HPI. NEUROLOGIC: No reported seizures or blackouts. PHYSICAL EXAMINATION: GENERAL: Alert and oriented, appropriate, 69-year-old female, in no acute distress. VITAL SIGNS: Last reported temperature is 98.4, pulse 76, respiratory rate 20, blood pressure 83/51 with a mean of 62. HEENT: Normocephalic, atraumatic. [place] mucous membranes. NECK: Supple and soft. Trachea is midline. She has no JVD or thyromegaly. HEART: Has essentially regular rate and rhythm. LUNGS: Clear with occasional wheezes bilaterally in the anterior aspects. ABDOMEN: The bowel sounds are positive and soft. She has some tenderness in the mid upper abdomen. It is improved on serial examination. EXTREMITIES: Show positive radial pulses bilaterally. NEUROLOGIC: She has no acute findings. Cranial nerves 2-12 are grossly intact. SKIN AND INTEGUMENT: Warm and dry. LABORATORY STUDIES: Show white count 14.2 on admission, repeat today is 10.7, hemoglobin today is 13.7, platelet count is 304. Chemistry today shows BUN 15, creatinine of 1.12, both decreased from admission. Total bilirubin is decreased from 1.2-1.0, AST is increased to 143, ALT is increased to 129, alkaline phosphatase slightly increased to 161, lipase is decreased. IMAGING STUDIES: She has had an ultrasound that shows gallstones and sludge and a thickened wall consistent with adenomyosis. These findings are essentially confirmed on CT scan, although there is possibility of a polyp and there is a noted calcified uterine fibroid. SURGICAL ASSESSMENT: 1. Acute on chronic calculous cholecystitis. 2. History of Crohn's disease. 3. Immunocompromised status. 4. History of tobacco use. PLAN: 1. The patient is seen and examined. Chart was reviewed. 2. The patient has improved appropriately with IV fluids, gut rest, and IV antibiotics. She has tolerated clear so well. She is suggested increasing diet as tolerated. If she continues to improve appropriately, we will allow to go home and follow up with her GI specialist to manage her Crohn's and determine the appropriate timing for surgical intervention. However, if she becomes worse, I have discussed with Radiology the possible benefits of percutaneous decompression and as the patient does not appear to be septic at this time, it is likely unnecessary. I have discussed with the patient the potential risks and complications associated with surgery based on her general state of health and she expressed understanding. Андрей Arazte DO DR: ALYSSA/laxmi JOB# [id number] CC: Abel SANTACRUZ
--- NOTE | 2019-03-21 20:16 | DSH ---
DATE OF DISCHARGE: 03/21/2019 ADMITTING DIAGNOSES: 1. Xvuge-po-umoldvq cholecystitis/gallstone pancreatitis. 2. Hypertension. 3. Crohn's disease. 4. Hypokalemia. DISCHARGE DIAGNOSES: 1. Kcxfu-gf-zfrlezx cholecystitis. 2. Chronic obstructive pulmonary disease. 3. Gallstone pancreatitis. 4. Hypertension. 5. Crohn's disease. DISCHARGE MEDICATIONS: 1. Augmentin 875 b.i.d. for 5 days. 2. Medrol Dosepak. 3. Resume previous home medications. HOSPITAL COURSE: This is a 69-year-old female, admitted to [facility] for further evaluation and management. She was admitted initially with abdominal pain, nausea, and diarrhea. Symptoms started suddenly and she was given IV pain medication and antiemetics and kept n.p.o. Her vital signs were stable upon admission. Her laboratory evaluation showed a slight elevation in white blood cell count of 14.2 as well as a lipase of 352 and increased LFTs. After IV fluids and bowel rest, her LFTs normalized and lipase normalized as well to 125. The patient did have some wheezing and mild shortness of breath. She does have a history of shortness of breath and she was given IV corticosteroids and antibiotics, which were being used for this as well. She did well over the course of the next 24 hours. I saw the patient on 03/21/2019. She was feeling well and had no complaints. Her breathing was better. PHYSICAL EXAMINATION: VITAL SIGNS: Stable and reviewed. LUNGS: Clear to auscultation. HEART: Regular rate and rhythm without murmurs. ABDOMEN: Soft and nontender. EXTREMITIES: Legs were without edema. NEUROLOGIC EXAMINATION: Normal. LABORATORY DATA: Labs were reviewed and stable. CBC showed a normal white blood cell count and lipase had normalized. DISPOSITION: The patient was thus discharged to home in stable condition with instructions to follow up with her PCP within the next 1-2 weeks. Favian Sanchez MD DR: ÁLVARO/laxmi JOB# [id number]
[2019-03-21] MEDS ORDERED: TYLENOL PO SCH (21:00)
--- NOTE | 2019-03-22 00:14 | PNH ---
DATE: SUBJECTIVE: A 69-year-old female in no acute distress. She reports some shortness of breath. Her abdominal pain is improved. OBJECTIVE: VITAL SIGNS: Temperature is 97.9, pulse 77, respiratory rate 18, blood pressure 105/62. ABDOMEN: The bowel sounds are positive. She has some tenderness in right upper quadrant and epigastrium. HEART: Regular rate and rhythm. LUNGS: Essentially clear bilaterally with faint end expiratory wheeze. LABORATORY DATA: Today show white count 8.4, hemoglobin 11.9, platelet count is 249. Chemistry today shows BUN of 12, creatinine of 1.21. Her total bilirubin 0.8. Her transaminase levels have improved. Her albumin is 2.5. ASSESSMENT: 1. Cholelithiasis with acute calculous cholecystitis. 2. Choledocholithiasis, improved. 3. History of Crohn's disease. 4. Iatrogenic immunosuppression. 5. History of hypertension. PLAN: 1. The patient is seen and examined. Chart is reviewed. 2. I have ordered a chest x-ray, which shows no significant acute pathology. The patient's O2 sat was 90% on room air. I have ordered O2 per protocol. 3. The patient is advised to be on a bland diet. When she feels better, she can go home. She is strongly advised to follow up with her GI physician who manages her Crohn's to determine course of action that is safe for her relative to cholecystitis. Андрей Arzate DO DR: ALYSSA/laxmi JOB# [id number] CC: Favian Griffiths M.D.
== END 2019-03-21 12:33 | disposition home or self-care (01) | DRG 444 ==
LOC: ER 00:07 → OBSVTOIN 04:29 → MS 04:29 → UNDOADMOB 04:29
PROVIDERS: ADMIT Family Medicine; ATTEND Family Medicine
DX: K80.66 Calculus of gallbladder and bile duct with acute and chronic cholecystitis without obstruction (principal); K85.10 Biliary acute pancreatitis without necrosis or infection; K50.90 Crohn's disease, unspecified, without complications; E87.6 Hypokalemia; F17.210 Nicotine dependence, cigarettes, uncomplicated; I10 Essential (primary) hypertension; J44.9 Chronic obstructive pulmonary disease, unspecified; Z79.899 Other long term (current) drug therapy; Z88.5 Allergy status to narcotic agent; Z90.49 Acquired absence of other specified parts of digestive tract; Z98.49 Cataract extraction status, unspecified eye
CPT/HCPCS: 36415; 71045; 74177; 76705; 80048; 80053; 80076; 81000; 82150; 83690; 85025; 93005; 99285; C9113; G0378; J1650; J1885; J2405; J2543; J3490; J7030; J7050; Q0163; Q9965

== ENCOUNTER 2022-05-07 16:28 | Emergency (ER) | payer MEDICARE ==
[~2022-05-07] VITALS: Ht 170.2 cm; Wt 58.1 kg
[~2022-05-07 16:28] MED LIST: AMLO-169 PO; AMOX1TAB63 PO; DEXA4TAB PO; DIPH1TAB PO; HYDR25TA9 PO; METO25TA4 PO; SPIR25TA PO
--- NOTE | 2022-05-07 16:35 | NUR ---
ARRIVAL PT ARRIVED AMBULATORY TO ED 6 WITH C/O COUGH AND DIARRHEA. PT WAS SEEN IN URGENT CARE AND RECEIVED A ZPAK AND PREDNISONE. VITALS TAKEN AND NOTIFIED.
[2022-05-07 16:41] VITALS: BP 156/86
[2022-05-07] MEDS ORDERED: ROBITUSSIN AC PO STA (16:55)
[2022-05-07] MEDS ORDERED: NS 1000ML 1,000 ML IV STA (16:55)
[2022-05-07] MEDS ORDERED: ZOFRAN IV STA (16:55)
[2022-05-07] MEDS ORDERED: IMODIUM PO STA (16:55)
[2022-05-07 17:14] LABS: BASOPHIL % 0.2 % (0.0-0.2); EOSINOPHIL % 0.2 % (0.0-5.0); LYMPHOCYTES # 3.69 10^3/uL1 (1.0-4.8); LYMPHOCYTES % 29.7 % (24.0-44.0); MEAN CORP HGB 31.7 pg (26-34); MONOCYTES # 1.1 10^3/uL (0.3-0.8); MONOCYTES % 9.1 % (5.0-12.0); NEUTROPHIL # 7.6 10^3/uL (1.8-7.7); NEUTROPHILS % 60.6 % (41.0-85.0); PLATELET COUNT 316 10^3/uL (150-400); RED CELL DISTRIBUTION WIDTH 12.1 % (11.5-14.5)
[2022-05-07] MEDS ORDERED: NS 1000ML 1,000 ML ONE (17:20)
[2022-05-07] MEDS ORDERED: IMODIUM ONE (17:20)
[2022-05-07] MEDS ORDERED: GUAIFENESIN ONE ×2 (17:20→17:27)
[2022-05-07] MEDS ORDERED: ZOFRAN ONE (17:20)
--- NOTE | 2022-05-07 17:24 | ER.PDOC ---
General Chief Complaint: Cough/Congestion Stated Complaint: COUGH,DIARRHEA Time seen by MD: 17:22 Source: patient Exam Limitations: no limitations History of Present Illness Initial Comments Cough and congestion for about 3 days. Patient was seen at the urgent care 3 days ago and given a Z-Nate and prednisone. She says that she continues to cough a lot and does not feel better. She has Crohn's disease and has been experiencing diarrhea for the last 3 days. No fever or chills. No abdominal pain. Timing/Duration: gradual Severity: moderate Associated Symptoms: cough Prior symptoms/Treatment: Similar symptoms previous, Recenly Seen, Treated by Doctor Allergies: Coded Allergies: morphine (Verified Allergy, Unknown, 03/20/19) Home Meds Active Scripts Dexamethasone (DEXAMETHASONE) 4 Mg Tablet, 4 TAB PO DAILY, #8 TAB Prov:ZAKIYA JIM MD 03/21/19 Amoxicillin/Potassium Clav (AUGMENTIN 875-125 TABLET) 1 Each Tablet, 1 EACH PO BID for 5 Days Prov:ZAKIYA JIM MD 03/21/19 Reported Medications Diphenoxylate Hcl/Atropine (LOMOTIL TABLET) 1 Each Tablet, 1 TAB PO TID PRN for DIARRHEA, #30 TAB 03/20/19 Hydrochlorothiazide (HYDROCHLOROTHIAZIDE) 25 Mg Tablet, 1 TAB PO DAILY, #30 TAB 5 Refills 03/20/19 Spironolactone 25MG (ALDACTONE 25MG) 25 Mg Tablet, 1 TAB PO DAILY, #90 TAB 1 Refill 03/20/19 Metoprolol Tartrate 25MG (LOPRESSER 25MG) 25 Mg Tablet, 1 TAB PO BID, #180 TAB 1 Refill 03/20/19 Amlodipine Besylate (AMLODIPINE BESYLATE) 5 Mg Tablet, 1 TAB PO DAILY, #30 TAB 5 Refills 03/20/19 Constitutional: no symptoms reported EENTM: see HPI Respiratory: see HPI Cardiovascular: no symptoms reported Gastrointestinal: see HPI All Other Systems: Reviewed and Negative Past Medical History Medical History: COPD, hypertension Surgical History: cholecystectomy, colon, tonsillectomy Family History Significant Family History: no pertinent family hx Social History Smoking: greater than 1 pack/day Alcohol Use: none Drug Use: none Physical Exam General Appearance: alert, no distress Nose: nose nml Throat: pharynx nml, airway nml Neck: nml inspection, supple Respiratory: no resp.distress, breath sounds nml Abdomen: non-tender, no organomegaly CVS: reg rate & rhythm, heart sounds nml, tachycardia Skin: color nml, no rash, warm/dry Extremities: non-tender, nml ROM, no pedal edema NEURO/PSYCH: oriented x 3, CN's nml as tested, motor nml, sensation nml, mood/affect nml Results/Orders Results/Orders Vital Signs Date Time Temp Pulse Resp B/P (MAP) Pulse Ox O2 Delivery O2 Flow Rate FiO2 05/07/22 16:41 98.4 111 18 91 05/07/22 16:41 98.4 111 18 05/07/22 16:41 98.4 111 18 156/86 (109) 91 Room Air* 0 21 Administered Medications Medications (Trade) Dose Ordered Sig/Jona Route PRN Reason Start Time Stop Time Status Last Admin Dose Admin Loperamide HCl (Imodium) 4 mg STAT STAT PO 05/07/22 16:55 05/07/22 16:59 DC 05/07/22 17:28 4 MG Ondansetron HCl (Zofran) 4 mg STAT STAT IV 05/07/22 16:55 05/07/22 16:59 DC 05/07/22 17:28 4 MG Potassium Chloride/Sodium Chloride 1,000 ml @ 500 mls/hr Q2H STAT IV 05/07/22 18:07 05/07/22 20:06 DC 05/07/22 18:17 500 MLS/HR Potassium Chloride (Klor-Con 10) 40 meq STAT STAT PO 05/07/22 17:32 05/07/22 17:33 DC 05/07/22 17:39 40 MEQ Sodium Chloride 1,000 ml @ 1,200 mls/hr Q50M STAT IV 05/07/22 16:55 05/07/22 17:44 DC 05/07/22 17:28 1,200 MLS/HR Laboratory Tests Test 05/07/22 17:05 05/07/22 20:56 White Blood Count 12.4 10^3/uL (4.5-11.0) H Red Blood Count 4.86 10^6/uL (4.00-5.20) Hemoglobin 15.4 g/dL (12.0-15.0) H Hematocrit 44.7 % (36.0-46.0) Mean Corpuscular Volume 92.0 fL (78-100) Mean Corpuscular Hemoglobin 31.7 pg (26-34) Mean Corpuscular Hemoglobin Concent 34.5 g/dL (33-36.5) Red Cell Distribution Width 12.1 % (11.5-14.5) Platelet Count 316 10^3/uL (150-400) Mean Platelet Volume 9.0 fL (7.8-11.0) Neutrophils (%) (Auto) 60.6 % (41.0-85.0) Lymphocytes (%) (Auto) 29.7 % (24.0-44.0) Monocytes (%) (Auto) 9.1 % (5.0-12.0) Neutrophils # (Auto) 7.6 10^3/uL (1.8-7.7) Lymphocytes # (Auto) 3.69 10^3/uL1 (1.0-4.8) Monocytes # (Auto) 1.1 10^3/uL (0.3-0.8) H Absolute Immature Granulocyte (auto 0.02 10^3 u/L (0-2) Absolute Eosinophils (auto) 0.0 10^3/uL (0.0-0.2) Immature Granulocytes % 0.20 % (0.00-0.50) Eosinophils % 0.2 % (0.0-5.0) Basophils % 0.2 % (0.0-0.2) Basophils # 0.0 10^3/uL (0.0-0.1) Sodium Level 140 mmol/L (132-145) Potassium Level 2.4 mmol/L (3.6-5.2) *L 2.9 mmol/L (3.6-5.2) L Chloride Level 97.0 mmol/L (96-109) Carbon Dioxide Level 31.7 mmol/L (20.0-32) Anion Gap 13.7 Blood Urea Nitrogen 16 mg/dL (7-18) Creatinine 1.12 mg/dL (0.59-1.40) Estimated GFR () 57.5 (>/=60) Est GFR (CKD-EPI)(Non-Afr [place]ian) 47.6 (>/=60) BUN/Creatinine Ratio 14.0 Glucose Level 115 mg/dL (70-110) H Lactic Acid Level 1.8 mmol/L (0.5-1.9) Calcium Level 8.7 mg/dL (8.4-10.5) Total Bilirubin 0.7 mg/dL (0.2-1.0) Aspartate Amino Transferase (AST) 31 U/L (0-35) Alanine Aminotransferase (ALT) 40 U/L (12-78) Alkaline Phosphatase 144 U/L (50-136) H Total Protein 7.8 g/dL (6.4-8.2) Albumin 3.6 g/dL (3.4-5.0) Globulin 4.2 Albumin/Globulin Ratio 0.857 Progress Progress History show potassium of 2.4, rest of chemistry is unremarkable. WBC is 12.4. Chest x-ray showed hyperinflation suggesting underlying structural lung disease but no infiltrate. Patient received 40 mEq of potassium by mouth and currently receiving 20 mEq IV. Care transferred to Dr. Barber at 1900 who will repeat potassium after the infusion is complete and make a disposition. Sunil repeat K is 2.9. Plan is for outpatient management. We will recommend a clear liquid diet, cessation of the azithromycin, and potassium supplementation for 3 days, with clinic followup. ER DEPART Departure Time of Disposition: 21:50 Disposition: 01 HOME / SELF CARE / HOMELESS Impression: Primary Impression: Acute bronchitis Additional Impression: Hypokalemia Condition: Improved Patient Instructions: Bronchitis, Diet for Diarrhea, Adult, Hypokalemia Referrals: ANGELICA RECINOS MD (PCP) PRIMARY CARE PROVIDER Additional Instructions: Your increased diarrhea seems to be a side effect of the Azithromycin. As we believe your respiratory illness to be from a virus, we recommend stopping that and not resuming. Follow the Diet for Diarrhea and get good hydration until those symptoms subside. You may use over the counter cough medications (r obitussin DM and similar) as needed. We have prescribed potassium supplements for you to use for the next three days. Follow up later this week in clinic to have your potassium rechecked. Return if your symptoms significantly worsen. Duration or Time Spent with Pa: 15 min Problem Qualifiers Primary Impression: Acute bronchitis Bronchitis organism: unspecified organism Qualified Codes: J20.9 - Acute bronchitis, unspecified DANIEL DUNCAN MD May 07, 2022 17:24 ANN BARBER MD May 07, 2022 21:54
[2022-05-07] MEDS ORDERED: ROBITUSSIN AC ONE (17:28)
[2022-05-07 17:30] LABS: CARBON DIOXIDE 31.7 mmol/L (20.0-32)
--- NOTE | 2022-05-07 17:31 | NUR ---
CRITICAL LAB NOTIFIED DANIEL OF POTASSIUM 2.4
--- NOTE | 2022-05-07 17:31 | DIREP ---
PROCEDURE:CHEST 1 VIEW COMPARISON:[facility], CR, XRAY CHEST SINGLE VW, 03/21/2019, 07:15 AM. [facility], CR, XRAY CHEST 2 VWS, 07/16/2017, 11:42 AM. INDICATIONS:Cough FINDINGS: LUNGS/PLEURA:Hyperinflation may be senescent or suggest underlying structural lung disease. No confluent pulmonary infiltrate. No effusions. No pneumothorax. VASCULATURE:Unremarkable pulmonary vasculature. CARDIAC:No cardiac silhouette abnormality or cardiomegaly. MEDIASTINUM:No visible mass or adenopathy. BONES:No fracture or visible bony lesion. OTHER:Negative. CONCLUSION: 1. Hyperinflation may be senescent or suggest underlying structural lung disease. No confluent pulmonary infiltrate. Dictated by: Mirta Loaiza MD on 05/07/2022 at 05:29 PM
[2022-05-07] MEDS ORDERED: KLOR-CON 10 PO STA (17:32)
[2022-05-07] MEDS ORDERED: KLOR-CON 10 PO ONE ×2 (17:33→17:35)
[2022-05-07] MEDS ORDERED: NS 1000ML/KCL 20MEQ 1,000 ML IV ONE (18:04)
[2022-05-07] MEDS ORDERED: NS 1000ML/KCL 20MEQ 1,000 ML IV STA (18:07)
[2022-05-07] MEDS ORDERED: KLOR-CON 10 PO SCH (22:00)
[2022-05-07 22:12] VITALS: BP 103/55
== END 2022-05-07 22:12 | disposition home or self-care (01) ==
LOC: ER 16:28
DX: J20.9 Acute bronchitis, unspecified (principal); E87.6 Hypokalemia; J44.0 Chronic obstructive pulmonary disease with (acute) lower respiratory infection; I10 Essential (primary) hypertension; F17.210 Nicotine dependence, cigarettes, uncomplicated; K50.90 Crohn's disease, unspecified, without complications; R19.7 Diarrhea, unspecified; Z88.5 Allergy status to narcotic agent; Z90.49 Acquired absence of other specified parts of digestive tract; Z90.89 Acquired absence of other organs
CPT/HCPCS: 99284; 96365; 71045; 96361; 96375; 96366; 80053; 85025; 36415; 83605; 84132; J0745; J7030; J3490 ×2; J2405